=== PATIENT | female | born 1950 | race Caucasian/White ===

== ENCOUNTER 2017-04-07 08:00 | Inpatient (IN) | payer MEDICARE, OTHER ==
--- NOTE | 2017-04-07 08:54 | Rehab Joint Replacement Pre-Op ---
Rehab Joint Replacement Pre-Op - Pre-Op Visit Reviewed Items Scheduled for Post Op Visit: No Pre-Op Visit Comment: Pt lives in single family home with 3-4 steps to enter. Tub shower, needs bench also needs walker. Pt did report she would visit [employer] store in [place] (she lives near). If they do not have them she has vendor list and we can also supply when she arrives here on surgery day. Joshua Hose/Garment Measure THR - Thigh High: Yes Exercise Reviewed: Yes Stair Climbing: Yes Cane/Walker/Crutch Training: Yes List of Venders in the Area: Yes Shower Chair Transfers: Yes Car Transfers: Yes Bed Transfers: Yes Medical History Forms Issued: Yes Functional Scale Forms Issued: No Additional Comments: Pt did well. encouraged to get walker and tub bench and practice before surgery date.
[2017-04-14] MEDS ORDERED: FAMOTIDINE 20MG TABLET PO ONE (06:00)
[2017-04-14] MEDS ORDERED: METOCLOPRAMIDE 10 MG TABLET PO ONE (06:00)
[2017-04-14] MEDS ORDERED: ACETAMINOPHEN 1000MG/100 ML PREMIX IV ONE (06:00)
[2017-04-14] MEDS ORDERED: TRANEXAMIC ACID 1,000 MG/10 ML ML IV ONE ×3 (06:00→14:00)
[2017-04-14] MEDS ORDERED: CEFAZOLIN 2 Gram 50 ML IVPB ONE (06:00)
[2017-04-14] MEDS ORDERED: VANCOMYCIN HCL 1,000 MG in 0.9 % SODIUM CHLORIDE 250ML 250 ML IVPB ONE (06:00)
[2017-04-14] MEDS ORDERED: MECLIZINE 25 MG TABLET PO ONE (06:00)
[2017-04-14 10:13] LABS: ABO GROUP O; ANTIBODY SCREEN NEGATIVE (NEGATIVE); RH TYPE POSITIVE
[2017-04-14] MEDS ORDERED: HYDROMORPHONE HCL 2 MG/ML VIAL IM PRN (13:47)
[2017-04-14] MEDS ORDERED: BISACODYL 10 MG SUPP RC PRN (13:47)
[2017-04-14] MEDS ORDERED: KETOROLAC 30 MG/ML VIAL IVP PRN ×2 (13:47)
[2017-04-14] MEDS ORDERED: HYDROMORPHONE HCL 1 MG/ML CPJ IM PRN ×2 (13:47)
[2017-04-14] MEDS ORDERED: TRAMADOL HCL 50 MG TABLET PO PRN (13:47)
[2017-04-14] MEDS ORDERED: MAGNESIUM HYDROXIDE 30 ML UDC PO PRN (13:47)
[2017-04-14] MEDS ORDERED: AL HYDROX/MAG HYDROX 30ML UD PO PRN (13:47)
[2017-04-14] MEDS ORDERED: ACETAMINOPHEN W/ CODEINE 300MG/60MG TABLET PO PRN ×2 (13:47)
[2017-04-14] MEDS ORDERED: ACETAMINOPHEN 325 MG TAB PO PRN (13:47)
[2017-04-14] MEDS ORDERED: NALOXONE 0.4 MG/1 ML VIAL IVP PRN (13:47)
[2017-04-14] MEDS ORDERED: ONDANSETRON HCL IV 4 MG/2 ML VIAL IVP PRN (13:47)
[2017-04-14] MEDS ORDERED: ZOLPIDEM TARTRATE 5 MG TABLET PO PRN (13:47)
[2017-04-14] MEDS ORDERED: DIPHENHYDRAMINE HCL 25 MG CAPSULE PO PRN (13:47)
[2017-04-14] MEDS ORDERED: MIDAZOLAM HCL 2MG/2ML VIAL IV ONE (14:00)
[2017-04-14] MEDS ORDERED: KETOROLAC 30 MG/ML VIAL IVP ONE (14:00)
[2017-04-14] MEDS ORDERED: *PACU ONLY* KETAMINE HCL 10 MG/ML (20ML) VIAL IV ONE (14:00)
[2017-04-14] MEDS ORDERED: PROPOFOL 10 MG/ML VIAL IV ONE (14:00)
[2017-04-14] MEDS ORDERED: FENTANYL PF 100MCG/2ML VIAL IV ONE (14:00)
[2017-04-14] MEDS ORDERED: BUPIVACAINE 0.5% W/EPI MPF 30 ML VIAL IVP ONE ×2 (14:00)
[2017-04-14] MEDS ORDERED: LIDOCAINE 2% MDV (20MG/ML) 20ML VIAL IV ONE (14:00)
[2017-04-14] MEDS: POTASSIUM CHLORIDE/D5-0.9%NACL 20 MEQ/1,000 ML BAG IV SCH ×2 (14:42→23:23)
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
[2017-04-14] MEDS: HYDROCODONE/APAP 10/325 TABLET PO PRN ×2 (17:56→22:51)
[2017-04-14] MEDS: CEFAZOLIN 2 Gram 2 GM/50 ML BAG IVPB SCH (18:02)
[2017-04-14] MEDS: PATIENT OWN MED: RANITIDINE 150 MG PO SCH (22:11)
[2017-04-14] MEDS: DOCUSATE SODIUM 100 MG CAPSULE PO SCH (22:11)
[2017-04-14] MEDS: RESTASIS OPTHALMIC OPTH SCH (22:12)
[2017-04-15] MEDS: CEFAZOLIN 2 Gram 2 GM/50 ML BAG IVPB SCH ×3 (03:19→11:03)
[2017-04-15 06:35] LABS: HEMATOCRIT 35.2 % (35.0-47.0); HEMOGLOBIN 11.2 gm/dl (11.6-16.0)
[2017-04-15 06:47] LABS: BLOOD UREA NITROGEN 15 mg/dL (7-17); CREATININE 0.9 mg/dL (0.52-1.04); EST GLOMERULAR FILTRATION RATE > 60 ml/min; GLUCOSE,RANDOM 105 mg/dL (70-110)
[2017-04-15] MEDS: HYDROCODONE/APAP 10/325 TABLET PO PRN ×2 (07:10→13:02)
[2017-04-15] MEDS ORDERED: FERROUS SULFATE 325 MG TAB PO SCH (10:00)
[2017-04-15] MEDS ORDERED: RIVAROXABAN 10 MG TABLET PO SCH (10:00)
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
[2017-04-15] MEDS: POTASSIUM CHLORIDE/D5-0.9%NACL 20 MEQ/1,000 ML BAG IV SCH ×2 (10:24→14:06)
[2017-04-15] MEDS: DOCUSATE SODIUM 100 MG CAPSULE PO SCH (10:25)
[2017-04-15] MEDS: RESTASIS OPTHALMIC OPTH SCH (10:26)
[2017-04-15] MEDS: PATIENT OWN MED: RANITIDINE 150 MG PO SCH (10:26)
--- NOTE | 2017-04-15 11:23 | Physical Therapy Tx Note ---
Physical Therapy Tx Note - Treatment Note Tolerated: Good (Doing very well today except became nauseated and light-headed with gait today. Dressed and overall doing well.) Total Time Spent With Patient: 30 Physical Therapy Tx Note: Detail (Patient seen in room, sitting up in bed working on computer. Worked through exercises for quad, glut and hamstring sets , heel slides, SLR and ankle exercises. Supine to sit independently, sit to stand independently, ambulated with standard walker about 20 feet into phillips then became light-headed and nauseous but wanted to walk back to bed under own power so able to turn around and ambulate to room, back into bed with min assist. Nursing got patient a cold cloth for head and patient left resting with call light and tray table close.) Physical Therapy Problem List: Detail (Some decreased functional mobility yet and especially community distances with gait. Decreased ROM and strength yet.) Physical Therapy Goals: Patient will be independent with gait and mobility so can go home safely with family. ROM will be improved and pain controlled. Prognosis: Good (Patient doing very well and if passes stairs this afternoon, can be discontinued from PT.) Physical Therapy Plan: Continue PT BID tomorrow and possibly next am if needs more skilled therapy before discharge home.
--- NOTE | 2017-04-15 13:23 | Operative Note ---
DATE OF SURGERY: 04/14/2017. PREOPERATIVE DIAGNOSIS: End-stage arthrosis of the left knee. POSTOPERATIVE DIAGNOSIS: End-stage arthrosis of the left knee. OPERATION: Cemented left total knee arthroplasty using [employer] II components, with a size 5 Oxinium femoral component, a size 4 stemmed tibial baseplate, an 11 mm lipped tibial insert, and a 35 mm all plastic patella. Staff Surgeon: Cory Coronado MD. Anesthesia: Spinal. Preparation: ChloraPrep. Individual Considerations: None. PROCEDURE: Patient was taken to the operating room, placed supine on the operating table, where she had a successful induction of a general anesthetic. Her left lower extremity was prepped and draped in the usual fashion. Patient had a midline approach to the knee. Sharp dissection carried down through skin and subcutaneous tissue. Small veins were coagulated with a Bovie. A medial arthrotomy was performed. Patella was everted. Knee was flexed. Patient had exposed bone throughout. Fat pad was resected, ACL was sacrificed, and provisional anterior meniscectomies were performed. The initial femoral car pilot hole was then made freehand. The intramedullary femoral cutting jig was placed. It was cut in 7.0 degrees of valgus and adjusted for rotation and set for a 10 mm resection and secured with pins. The initial transverse cut was then made. Skid guide was placed for the anterior and posterior car pilot holes. It was found that a size 5 would be appropriate, but I needed to translate it anteriorly 2 mm. The anterior and posterior cuts followed by chamfer cuts were made, osteophytes removed, and a size 5 trial was placed and found to fit well. Tibia was brought forward. The remainder of the meniscal remnants were removed with the Bovie. The extraarticular tibial cutting jig was placed and it was cut in neutral with a 3 degree AP slope. It was set for a 9 mm resection keyed off the high lateral side and secured with pins. When cutting the tibia, care was taken to preserve the PCL insertion on the tibia. After that, it was found that a size 4 baseplate trial fit appropriately. It was adjusted for rotation and secured with pins. After further recessing the medial collateral ligament to obtain ligamentous balance, an 11 mm trial gave me excellent balance and rotation and alignment were thought to be normal. The femoral car pilot holes were then impacted and the triflange tibial stamp was impacted, and these trial components were removed. Patient had a thick patella, and roughly 9 mm of bone were removed with an oscillating saw. The 3 car pilot holes were then drilled. This was a 35 patella. The tourniquet was let down briefly to get bleeders posteriorly. I then placed it back up again. The knee was then thoroughly irrigated out with pulsatile Betadine and saline to remove any visual or palpable debris. Bony surfaces were then dried. The size 4 stemmed tibial baseplate was then cemented into place, followed by impaction of an 11 mm Highly Crosslinked tibial insert, followed by cementing in the size 5 Oxinium femur, followed by cementing in of the 35 mm patella. Implant surfaces were compressed, excess cement was removed, and after the cement had set, there were excellent motion and stability. Ligamentous balance, rotation line, and patellofemoral tracking were normal. Again irrigation, and then I infiltrated the periosteum and skin and subcutaneous tissue with 30 mL of 0.5% Marcaine with epinephrine. We then closed the fascia and capsule with a running #2 Quill. Subcu was closed with running #0 Quill. Skin was closed with liss. Patient did receive 1 g of tranexamic acid preoperatively. We then injected the knee with 30 mL of saline mixed with 1 g of tranexamic acid through a sterile 18 gauge needle, and a sterile, bulky, compressive Aquacel-type dressing was applied. Patient tolerated the procedure well. Needle and sponge counts were correct. Estimated blood loss was minimal, and she was taken back to recovery in good condition. There were no complications. CC: Sparkle Ohara MD [facility]
--- NOTE | 2017-04-15 14:31 | Physical Therapy Tx Note ---
Physical Therapy Tx Note - Treatment Note Tolerated: Good (Patient is having quite a bit of pain in knee with doing stairs and has no rail at home so will have to use a cane on one side and folded walker on other side. Only has two steps, a turn and two more steps and is going to get a gait belt to assist the process.) Total Time Spent With Patient: 20 Physical Therapy Tx Note: Detail (Patient seen in room and lying down in bed. Able to sit from supine independently, then sit to stand independently, SBA to ambulate to bathroom with standard walker, patient independent in bathroom then ambulated to stairwell (about 50 feet), went down three steps with rail, folded walker and therapist assist mod then turned around with walker and back up three steps with mod assist, rail and folded walker again. Ambulated about 20 more feet with standard walker then wheeled the rest of the way to room, patient transferred to bed independently. Reviewed exercises again. Answered questions.) Physical Therapy Problem List: Detail (Some decreased functional mobility yet and especially community distances with gait. Decreased ROM and strength yet.) Physical Therapy Goals: Patient will be independent with gait and mobility so can go home safely with family. ROM will be improved and pain controlled. Prognosis: Good (Patient may be ready to go home this afternoon. If she is still here tomorrow am, will see for another treatment.) Physical Therapy Plan: Continue PT BID tomorrow and possibly next am if needs more skilled therapy before discharge home.
--- NOTE | 2017-04-17 13:31 | Discharge Summary ---
DATE OF ADMISSION: 04/14/2017 DATE OF DISCHARGE: 04/15/2017 DATE OF SURGERY: 04/14/2017 HISTORY: The patient is an extremely delightful 66-year-old female who presents with end-stage arthrosis of her left knee. She was admitted for a left total knee arthroplasty. Postoperatively she did extremely well and her discharge hemoglobin was 10.9 and did not require transfusion. The plan is to discharge her home in the care of her family. Home PT and visiting nurse has been arranged. She will be given Xarelto for 15 days and then she will continue with her mini dose aspirin for DVT prophylaxis. She will follow up in my office in 4 weeks. The visiting nurse will remove her sutures in 2 weeks. Her discharge condition was good and these instructions were given directly to her and her . PRIMARY DIAGNOSIS: End-stage arthrosis of left knee. SECONDARY DIAGNOSES: 1. Operative blood loss anemia. 2. Chronic dry eyes. OPERATIONS: Cemented left total knee arthroplasty. VINNY
== END 2017-04-15 19:30 | disposition home or self-care (01) | DRG 470 ==
LOC: MEDSURG 04-14 08:38 → UNDOADMIN 04-14 08:38
PROVIDERS: ADMIT Orthopaedic Surgery; ATTEND Orthopaedic Surgery
PROC: 0SRD0J9 Replacement of Left Knee Joint with Synthetic Substitute, Cemented, Open Approach (ICD-10-PCS; principal; 2017-04-14 11:00)
DX: M17.12 Unilateral primary osteoarthritis, left knee (principal)
CPT/HCPCS: 80048; 85014; 85018; 86850; 86900; 86901; 97165; 97530; J1885; J2405; J3480; J7050